=== PATIENT | female | born 1935 | race Caucasian/White ===

== ENCOUNTER 2017-05-19 08:46 | Inpatient (IN) | payer MEDICARE ==
[~2017-05-19] VITALS: Ht 152.4 cm; Wt 47.4 kg
[~2017-05-19 08:46] MED LIST: AMBIEN10 M1 PO; ASPIRIN81 M1; ATIVAN0.5 MG PO; CENTRUM SILVER1 TA1; LESCOL; LIPITOR20 MG PO; LOPRESSOR25 MG PO; LOPRESSOR50 MG; MULTI VITAMINS1 TAB PO; NORVASC2.5 MG PO; ONDANSETRON HYDR4 M1 PO; PRILOSEC OTC20 MG; PROTONIX40 MG PO; PROZAC20 MG PO; ZOCOR20 MG PO
[2017-05-19 08:59] VITALS: BP 139/41
[2017-05-19 09:32] LABS: BASO % 0.6 % (0.0-1.0); EOS # 0.1 10*3/uL (0.0-0.4); HEMATOCRIT 38.8 % (37.0-47.0); HEMOGLOBIN 12.9 g/dl (12.0-16.0); LYMPH # 0.9 10*3/uL (1.3-4.4); LYMPH % 13.1 % (27.0-41.0); MEAN CELL VOLUME 91.5 fl (81.0-99.0); MEAN CORPUSCULAR HGB 30.4 pg (27.0-31.0); MEAN CORPUSCULAR HGB CONC 33.2 g/dl (33.0-37.0); MEAN PLATELET VOLUME 8.5 fl (9.6-12.3); MONO # 0.6 10*3/uL (0.1-1.0); MONO % 8.3 % (3.0-9.0); NEUT # 5.2 10*3/uL (2.3-7.9); NEUT % 75.6 % (47.0-73.0); PLATELET COUNT AUTOMATED 285 10*3/uL (130-400); RED BLOOD COUNT 4.24 10*6/uL (4.10-5.10); RED CELL DISTRI WIDTH 12.9 % (0-14.5); WHITE BLOOD COUNT 6.9 10*3/uL (4.8-10.8)
[2017-05-19 09:41] LABS: ACT PARTIAL THROMBO TIME 22.6 SECONDS (20.8-31.5)
[2017-05-19 09:46] LABS: ALBUMIN 3.4 gm/dl (3.1-4.5); ALKALINE PHOSPHATASE 81 U/L (45-117); BUN 18 mg/dl (7-24); CHLORIDE 97 mmol/L (98-107); LIPASE 229 U/L (73-393); POTASSIUM 5.4 mmol/L (3.5-5.1); SGOT/AST 23 IU/L (3-35); SGPT/ALT 41 U/L (12-78); SODIUM 130 mmol/L (136-145); TOTAL PROTEIN 6.3 gm/dL (6.4-8.2)
[2017-05-19 09:50] VITALS: BP 144/53
[2017-05-19 09:50] LABS: TROPONIN I < 0.015 ng/ml (<0.045)
[2017-05-19 11:20] VITALS: BP 135/52
[2017-05-19] MEDS ORDERED: PLAVIX75 M1 PO (11:58)
[2017-05-19 12:00] VITALS: BP 137/78
[2017-05-19] MEDS ORDERED: BAYER ASPIRIN C81 MG PO (12:00)
[2017-05-19] MEDS ORDERED: CENTRUM SILVER1 EAC1 PO (12:01)
[2017-05-19] MEDS ORDERED: PHILLIPS' COLO1 EACH PO (12:02)
[2017-05-19 16:00] VITALS: BP 130/42
[2017-05-19 20:00] VITALS: BP 156/48
[2017-05-20] VITALS: BP 148/58
[2017-05-20 06:51] LABS: BASO % 0.4 % (0.0-1.0); EOS # 0.2 10*3/uL (0.0-0.4); EOS % 2.6 % (1.0-4.0); HEMATOCRIT 36.9 % (37.0-47.0); HEMOGLOBIN 12.4 g/dl (12.0-16.0); LYMPH # 1.4 10*3/uL (1.3-4.4); LYMPH % 17.5 % (27.0-41.0); MEAN CELL VOLUME 90.9 fl (81.0-99.0); MEAN CORPUSCULAR HGB 30.5 pg (27.0-31.0); MEAN CORPUSCULAR HGB CONC 33.6 g/dl (33.0-37.0); MEAN PLATELET VOLUME 8.7 fl (9.6-12.3); MONO # 1.1 10*3/uL (0.1-1.0); MONO % 13.7 % (3.0-9.0); NEUT # 5.2 10*3/uL (2.3-7.9); NEUT % 65.5 % (47.0-73.0); PLATELET COUNT AUTOMATED 237 10*3/uL (130-400); RED BLOOD COUNT 4.06 10*6/uL (4.10-5.10); RED CELL DISTRI WIDTH 12.8 % (0-14.5); WHITE BLOOD COUNT 7.9 10*3/uL (4.8-10.8)
[2017-05-20 07:18] LABS: ALBUMIN 3.1 gm/dl (3.1-4.5); ALKALINE PHOSPHATASE 78 U/L (45-117); BUN 12 mg/dl (7-24); CHLORIDE 97 mmol/L (98-107); CHOLESTEROL 144 mg/dL (<200); CREATININE 0.66 mg/dL (0.55-1.02); FREE T4 0.99 ng/dl (0.76-1.46); HDL CHOLESTEROL 66 mg/dl (40-60); LDL CHOLESTEROL 63 mg/dL (9-159); PHOSPHOROUS 3.6 mg/dL (2.5-4.9); SGOT/AST 17 IU/L (3-35); SGPT/ALT 33 U/L (12-78); SODIUM 133 mmol/L (136-145); TOTAL PROTEIN 6.1 gm/dL (6.4-8.2); TRIGLYCERIDES 74 mg/dl (<150); VLDL CHOLESTEROL 15 mg/dL (6-40)
[2017-05-20 07:24] LABS: POTASSIUM 4.1 mmol/L (3.5-5.1)
[2017-05-20 07:25] LABS: ACT PARTIAL THROMBO TIME 22.8 SECONDS (20.8-31.5)
[2017-05-20 08:00] VITALS: BP 122/50
[2017-05-20 08:17] LABS: VITAMIN D, 25-HYDROXY 19.6 ng/mL (30-100)
[2017-05-20 12:00] VITALS: BP 124/59
[2017-05-20 16:00] VITALS: BP 117/40
[2017-05-20] MEDS ORDERED: ULTRAM50 MG PO (16:16)
== END 2017-05-20 16:58 | disposition home health service (06) | DRG 563 ==
LOC: ED 08:46 → EDHOLD 10:24 → 4E 10:24
PROVIDERS: Emergency Medicine; Internal Medicine
DX: S42.292A Other displaced fracture of upper end of left humerus, initial encounter for closed fracture (principal); E87.8 Other disorders of electrolyte and fluid balance, not elsewhere classified; E44.1 Mild protein-calorie malnutrition; E87.5 Hyperkalemia; E87.1 Hypo-osmolality and hyponatremia; E83.41 Hypermagnesemia; D72.810 Lymphocytopenia; I25.10 Atherosclerotic heart disease of native coronary artery without angina pectoris; I10 Essential (primary) hypertension; E78.5 Hyperlipidemia, unspecified; F41.9 Anxiety disorder, unspecified; I05.1 Rheumatic mitral insufficiency; W00.0XXA Fall on same level due to ice and snow, initial encounter; I35.0 Nonrheumatic aortic (valve) stenosis; R73.9 Hyperglycemia, unspecified; Z68.20 Body mass index [BMI] 20.0-20.9, adult; Z95.5 Presence of coronary angioplasty implant and graft; Y93.89 Activity, other specified; Y92.89 Other specified places as the place of occurrence of the external cause; Y99.8 Other external cause status; Z88.8 Allergy status to other drugs, medicaments and biological substances; Z79.82 Long term (current) use of aspirin; Z79.899 Other long term (current) drug therapy; Z86.73 Personal history of transient ischemic attack (TIA), and cerebral infarction without residual deficits; I25.2 Old myocardial infarction; Z90.49 Acquired absence of other specified parts of digestive tract; Z98.51 Tubal ligation status; Z84.1 Family history of disorders of kidney and ureter; Z82.3 Family history of stroke; Z82.49 Family history of ischemic heart disease and other diseases of the circulatory system; Z66 Do not resuscitate; Z51.5 Encounter for palliative care

== ENCOUNTER → 2017-05-23 | Outpatient (CLI) | payer MEDICARE ==
[~2017-05-23] MED LIST changes: +BAYER ASPIRIN C81 MG PO; +CENTRUM SILVER1 EAC1 PO; +PHILLIPS' COLO1 EACH PO; +PLAVIX75 M1 PO; +ULTRAM50 MG PO
== END | disposition home or self-care (01) ==
LOC: ORTHO 02:16
DX: S42.212D Unspecified displaced fracture of surgical neck of left humerus, subsequent encounter for fracture with routine healing (principal); Z91.81 History of falling; X58.XXXD Exposure to other specified factors, subsequent encounter

== ENCOUNTER → 2017-06-13 | Outpatient (CLI) | payer MEDICARE | END | disposition home or self-care (01) | LOC: ORTHO 00:21 | DX: S00-T88 Injury, poisoning and certain other consequences of external causes (principal); S42.92XD Fracture of left shoulder girdle, part unspecified, subsequent encounter for fracture with routine healing; X58.XXXD Exposure to other specified factors, subsequent encounter ==

== ENCOUNTER → 2017-07-12 | Outpatient (CLI) | payer MEDICARE | END | disposition home or self-care (01) | LOC: ORTHO 03:33 | DX: S42.292D Other displaced fracture of upper end of left humerus, subsequent encounter for fracture with routine healing (principal); X58.XXXD Exposure to other specified factors, subsequent encounter ==

== ENCOUNTER → 2017-08-07 | Outpatient (CLI) | payer MEDICARE | END | disposition home or self-care (01) | LOC: LAB 08:47 | DX: E55.9 Vitamin D deficiency, unspecified (principal) ==

== ENCOUNTER → 2017-08-09 | Outpatient (CLI) | payer MEDICARE | END | disposition home or self-care (01) | LOC: ORTHO 01:56 | DX: S42.202A Unspecified fracture of upper end of left humerus, initial encounter for closed fracture (principal); X58.XXXA Exposure to other specified factors, initial encounter; Y93.89 Activity, other specified; Y92.89 Other specified places as the place of occurrence of the external cause; Y99.8 Other external cause status ==

== ENCOUNTER → 2017-09-13 | Outpatient (CLI) | payer MEDICARE | END | disposition home or self-care (01) | LOC: ORTHO 01:34 | DX: Z47.89 Encounter for other orthopedic aftercare (principal); S42.302D Unspecified fracture of shaft of humerus, left arm, subsequent encounter for fracture with routine healing; X58.XXXD Exposure to other specified factors, subsequent encounter ==

== ENCOUNTER → 2017-10-25 | Outpatient (CLI) | payer MEDICARE | END | disposition home or self-care (01) | LOC: ORTHO 02:21 | DX: Z47.89 Encounter for other orthopedic aftercare (principal); S42.202D Unspecified fracture of upper end of left humerus, subsequent encounter for fracture with routine healing; X58.XXXD Exposure to other specified factors, subsequent encounter ==

== ENCOUNTER 2017-12-26 08:45 | Inpatient (IN) | payer MEDICARE ==
[~2017-12-26] VITALS: Ht 152.4 cm; Wt 83.4 kg
--- NOTE | ~2017-12-26 | CON ---
[place], [place] REPORT OF CONSULTATION NAME: [id number] UNIT #: [id number] ROOM: 408 DOCTOR: NOMI CEJA MD BIRTHDATE: [birth year] DOS: 12/28/2017 CARDIOLOGY CONSULTATION REASON FOR CONSULTATION: Aortic stenosis and valvular heart disease. HISTORY OF PRESENT ILLNESS: The patient is an 82-year-old patient with a history of hypertension and coronary artery disease, was admitted for weakness and dizziness. She was started on her blood pressure medication, lisinopril with hydrochlorothiazide about a week ago. She also takes metoprolol for her blood pressure and coronary artery disease. Ever since she started on new blood pressure medication, she is feeling some lightheaded. Yesterday afternoon after taking the medication, she felt dizzy and "passed out." She woke up on the floor. There is no bladder or bowel incontinence. She denies any chest pain, palpitations or shortness of breath prior to this episode. She is also complaining of some exertional dyspnea for the past several months. The patient did walk several miles every day without any chest pain. Cardiology was consulted for further recommendation due to her valvular heart disease noted on a 2D echo done during this hospital admission. She denies any chest pain or palpitations. No dizziness. No PND, no orthopnea. No nausea, vomiting, or diarrhea. No fever or chills. No tingling, numbness or weakness. No headaches, no bladder or bowel symptoms. REVIEW OF SYSTEMS: Review of the 10 systems negative except as mentioned above. PAST MEDICAL HISTORY: 1. Coronary artery disease, status post stent about 20 years ago, details unknown. 2. Hypertension. 3. History of cerebrovascular accident. 4. Valvular heart disease. 5. Dyslipidemia. PAST SURGICAL HISTORY: History of cholecystectomy and tubal ligation. SOCIAL HISTORY: The patient does not smoke or drink, does not use illicit drugs. FAMILY HISTORY: Nil contributory. Father at age of 36 from kidney disease. Mother at the age of 78 from stroke. ALLERGIES: The patient is allergic to Valium and Ritalin. MEDICATIONS: Reviewed including aspirin, Lipitor, metoprolol, Ativan, Plavix, vitamin D3, and multivitamins. PHYSICAL EXAMINATION: VITAL SIGNS: Blood pressure 131/48, pulse 59, respiration 20, weight 51.5 kilos, BMI 22.2. GENERAL: Alert, comfortable, in no acute distress. [place], [place] REPORT OF CONSULTATION NAME: AYESHA YOU UNIT #: [id number] ROOM: [facility] DOCTOR: BRENNA ALACRON,NOMI BIRTHDATE: [birth year] HEENT: Pupils are round and equal. No jaundice. Tongue was moist and pharynx clear. NECK: Supple, no distended neck veins, no carotid bruit. CHEST: Symmetrical, nontender. LUNGS: Clear to auscultation. HEART: Regular rhythm, no S3. Grade 3/6 systolic murmur as well as grade 1/6 mid diastolic murmur. No palpable thrills. ABDOMEN: Benign and nontender. Bowel sounds normal. EXTREMITIES: Showed no edema. Distal pulses are palpable. SKIN: Warm and dry. No cyanosis, no clubbing. RECTAL: Deferred. GENITOURINARY: Deferred. NEUROLOGIC: The patient is alert and oriented. No focal neurologic deficit. REVIEW OF THE DIAGNOSTIC TESTS: Her labs, imaging studies, rhythm strips and EKGs reviewed as available. The pertinent labs include hemoglobin 14.6, WBC 12,000, and platelets 248,000. Creatinine 0.9, potassium 4.2. 2D echo from 12/27/2017 showed EF of 60% with moderate to severe aortic stenosis, mean gradient of 34 mmHg, peak 52 mmHg, valve area of 0.9 square cm. There is also mitral stenosis and moderate mitral regurgitation noted. There is severe tricuspid regurgitation and severe pulmonary hypertension noted. The stress test from 10/2015 was nonischemic. IMPRESSION: 1. Syncope, possibly due to hypotension. 2. Valvular heart disease with aortic stenosis, mitral stenosis, mitral regurgitation and tricuspid regurgitation. 3. Dyspnea on exertion. 4. Severe pulmonary hypertension. 5. Coronary artery disease, status post stent about 20 years ago per the patient, details not available. 6. Sinus bradycardia. 7. History of stroke. 8. Hypertension. 9. Hyponatremia. RECOMMENDATIONS: 1. Currently blood pressure and heart rates are stable. 2. Continue to hold her blood pressure medications and based on blood pressure and heart rates, resume low-dose beta blockers tomorrow. 3. I had a long discussion with the patient and her daughter, who is at bedside regarding her reason for syncope and valvular heart disease discussed. 4. The patient and her family does not wish her to undergo any cardiac surgery due to her age and high risk surgery. 5. If the patient is agreeable for valvular heart surgery, then she will need cardiac catheterization to rule out underlying coronary artery disease prior to her valvular heart surgery. 6. Precaution to avoid hypotension discussed. 7. Possible discharge home tomorrow with low-dose beta kacey based on her [place], [place] REPORT OF CONSULTATION NAME: AVELINOAYESHA Dietz UNIT #: [id number] ROOM: [facility] DOCTOR: NOMI CEJA MD BIRTHDATE: [birth year] blood pressures. NOMI CEJA MD CM:CONSTR:REPORT OF CONSULTATION 2357 12/29/17 0359 interface
--- NOTE | ~2017-12-26 | PR ---
[place], [place] PROGRESS NOTE NAME: AYESHA YOU UNIT #: [id number] ROOM: 408 DOCTOR: NOMI CEJA MD BIRTHDATE: [birth year] DOS: 12/29/2017 REASON FOR VISIT: Valvular heart disease, syncope. HISTORY OF PRESENT ILLNESS: The patient is feeling better. Denies any dizziness. No chest pain, no palpitations, no edema, no orthopnea, no PND. The patient has been ambulating without any discomfort except mild dyspnea on occasion. RHYTHM STRIPS: The patient was off the monitor. REVIEW OF SYSTEMS: Review of the 8 systems negative except as mentioned above. PHYSICAL EXAMINATION: VITAL SIGNS: Blood pressure 146/52, pulse 60, respiratory rate 16. GENERAL: Alert, comfortable, in no acute distress. HEAD AND NECK: Pupils are round and equal. No jaundice. Neck: Supple, nondistended. No carotid bruit. CHEST: Symmetrical, nontender. LUNGS: Clear to auscultation. HEART: Regular rhythm, no S3. Grade 2-3/6 systolic murmur as well as grade 2/6 mid diastolic murmur. No palpable thrills. ABDOMEN: Benign, nontender. Bowel sounds normal. EXTREMITIES: Showed no edema. Distal pulses palpable. SKIN: Warm and dry. No cyanosis, no clubbing. RECTAL: Deferred. GENITOURINARY: Deferred. NEUROLOGIC: The patient is alert, oriented. No focal neurologic deficit. MEDICATIONS AND ALLERGIES: Reviewed. DIAGNOSTIC TESTS: Labs reviewed as available. IMPRESSION: 1. Syncope, possibly due to hypotension. 2. Valvular heart disease with aortic stenosis and mitral stenosis. 3. Severe pulmonary hypertension. 4. Exertional dyspnea due to valvular heart disease. 5. History of essential hypertension. RECOMMENDATIONS: The patient is feeling better. No further syncope. Her blood pressure is stable with systolic blood pressure between 121-148 with a diastolic pressure of less than 90mmHg. Continue her low-dose beta blockers and monitor heart rate and blood pressure. The patient can be discharged home today and she would like to follow up with [facility]. [place], [place] PROGRESS NOTE NAME: AYESHA YOU UNIT #: [id number] ROOM: 408 DOCTOR: RYAN CEJA MDI BIRTHDATE: [birth year] Regarding blood pressures, we will adjust blood pressure medications. The patient again is requesting for medical therapy only for her valvular heart disease. Discussed with her sister, who is at bedside. The patient understood that she will get exertional dyspnea from her underlying valvular heart disease. Follow up with [facility] in about 2-3 weeks after her discharge. NOMI CEJA MD CM:TAVO [id number] NOMI CEJA MD 01/20/18 1040 interface
[2017-12-26 08:46] VITALS: BP 120/56
[2017-12-26 09:43] LABS: BASO % 0.2 % (0.0-1.0); EOS # 0.1 10*3/uL (0.0-0.4); EOS % 0.4 % (1.0-4.0); HEMATOCRIT 41.6 % (37.0-47.0); HEMOGLOBIN 14.6 g/dl (12.0-16.0); LYMPH # 0.5 10*3/uL (1.3-4.4); LYMPH % 4.3 % (27.0-41.0); MEAN CORPUSCULAR HGB 30.2 pg (27.0-31.0); MEAN CORPUSCULAR HGB CONC 35.1 g/dl (33.0-37.0); MEAN PLATELET VOLUME 8.5 fl (9.6-12.3); MONO # 0.8 10*3/uL (0.1-1.0); MONO % 6.5 % (3.0-9.0); NEUT # 10.8 10*3/uL (2.3-7.9); NEUT % 88.2 % (47.0-73.0); PLATELET COUNT AUTOMATED 248 10*3/uL (130-400); RED BLOOD COUNT 4.84 10*6/uL (4.10-5.10); RED CELL DISTRI WIDTH 12.1 % (0-14.5); WHITE BLOOD COUNT 12.2 10*3/uL (4.8-10.8)
[2017-12-26 09:58] LABS: ALBUMIN 3.5 gm/dl (3.1-4.5); ALKALINE PHOSPHATASE 77 U/L (45-117); BUN 17 mg/dl (7-24); CHLORIDE 86 mmol/L (98-107); POTASSIUM 4.2 mmol/L (3.5-5.1); SGOT/AST 28 IU/L (3-35); SGPT/ALT 31 U/L (12-78); SODIUM 122 mmol/L (136-145); TOTAL PROTEIN 6.7 gm/dL (6.4-8.2)
[2017-12-26 10:02] LABS: BILIRUBIN NEGATIVE (NEGATIVE); BLOOD TRACE-LYSED (NEGATIVE); CLARITY SL CLOUDY (CLEAR); COLOR YELLOW (YELLOW); GLUCOSE NEGATIVE (NEGATIVE); KETONE NEGATIVE (NEGATIVE); LEUKO ESTERASE TRACE (NEGATIVE); NITRITE NEGATIVE (NEGATIVE); PH 7.5 (5.0-9.0); UROBILINOGEN 0.2 E.U./dl (0.2-1.0)
[2017-12-26 10:16] LABS: BACTERIA 2+
[2017-12-26 11:07] VITALS: BP 120/56
[2017-12-26 12:00] VITALS: BP 126/107
[2017-12-26 12:42] VITALS: BP 124/61
[2017-12-26] MEDS ORDERED: VITAMIN D-32000 UNIT PO (13:28)
[2017-12-26] MEDS ORDERED: THEREMS-M1 EACH PO (13:29)
[2017-12-26 16:00] VITALS: BP 114/57
[2017-12-26 20:00] VITALS: BP 119/72
[2017-12-27] VITALS: BP 121/51
[2017-12-27 06:32] LABS: BASO # 0.1 10*3/uL (0.0-0.1); BASO % 0.6 % (0.0-1.0); EOS # 0.3 10*3/uL (0.0-0.4); EOS % 3.5 % (1.0-4.0); HEMATOCRIT 38.8 % (37.0-47.0); HEMOGLOBIN 13.2 g/dl (12.0-16.0); LYMPH # 1.1 10*3/uL (1.3-4.4); LYMPH % 10.9 % (27.0-41.0); MEAN CELL VOLUME 88.8 fl (81.0-99.0); MEAN CORPUSCULAR HGB 30.2 pg (27.0-31.0); MEAN PLATELET VOLUME 8.7 fl (9.6-12.3); MONO # 0.8 10*3/uL (0.1-1.0); MONO % 7.8 % (3.0-9.0); NEUT # 7.5 10*3/uL (2.3-7.9); NEUT % 76.8 % (47.0-73.0); PLATELET COUNT AUTOMATED 201 10*3/uL (130-400); RED BLOOD COUNT 4.37 10*6/uL (4.10-5.10); RED CELL DISTRI WIDTH 12.5 % (0-14.5); WHITE BLOOD COUNT 9.8 10*3/uL (4.8-10.8)
[2017-12-27 06:39] LABS: BUN 11 mg/dl (7-24); CHLORIDE 96 mmol/L (98-107); CREATININE 0.59 mg/dL (0.55-1.02); PHOSPHOROUS 2.1 mg/dL (2.5-4.9); POTASSIUM 3.8 mmol/L (3.5-5.1); SODIUM 128 mmol/L (136-145)
[2017-12-27 08:00] VITALS: BP 106/50
[2017-12-27 12:00] VITALS: BP 121/50
[2017-12-27] MEDS ORDERED: ZESTORETIC 10-1 EACH PO (14:21)
[2017-12-27 16:00] VITALS: BP 144/50
[2017-12-27 20:00] VITALS: BP 129/60
[2017-12-28 00:06] VITALS: BP 127/57
[2017-12-28 06:46] LABS: HEMATOCRIT 33.1 % (37.0-47.0); HEMOGLOBIN 11.2 g/dl (12.0-16.0); MEAN CELL VOLUME 89.9 fl (81.0-99.0); MEAN CORPUSCULAR HGB 30.4 pg (27.0-31.0); MEAN CORPUSCULAR HGB CONC 33.8 g/dl (33.0-37.0); MEAN PLATELET VOLUME 9.3 fl (9.6-12.3); PLATELET COUNT AUTOMATED 190 10*3/uL (130-400); RED BLOOD COUNT 3.68 10*6/uL (4.10-5.10); RED CELL DISTRI WIDTH 13.1 % (0-14.5); WHITE BLOOD COUNT 8.1 10*3/uL (4.8-10.8)
[2017-12-28 07:00] LABS: ALBUMIN 2.5 gm/dl (3.1-4.5); ALKALINE PHOSPHATASE 63 U/L (45-117); BUN 10 mg/dl (7-24); CHLORIDE 101 mmol/L (98-107); CREATININE 0.51 mg/dL (0.55-1.02); POTASSIUM 3.8 mmol/L (3.5-5.1); SGOT/AST 24 IU/L (3-35); SGPT/ALT 21 U/L (12-78); SODIUM 131 mmol/L (136-145); TOTAL PROTEIN 5.3 gm/dL (6.4-8.2)
[2017-12-28 07:16] LABS: BASOPHILS 1 % (0-1); PLATELET SUFFICIENCY NORMAL (NORMAL); TOTAL CELLS COUNTED 100 #CELLS
[2017-12-28 07:30] VITALS: BP 123/41
[2017-12-28 08:00] VITALS: BP 135/67
[2017-12-28 11:56] LABS: PHOSPHOROUS 2.1 mg/dL (2.5-4.9)
[2017-12-28 12:00] VITALS: BP 131/48
[2017-12-28 16:00] VITALS: BP 135/54
[2017-12-28 20:00] VITALS: BP 121/48
[2017-12-29] VITALS: BP 142/50
[2017-12-29 06:27] LABS: PHOSPHOROUS 2.9 mg/dL (2.5-4.9)
[2017-12-29 08:00] VITALS: BP 148/52
[2017-12-29 12:00] VITALS: BP 105/82
== END 2017-12-29 14:51 | disposition home or self-care (01) | DRG 312 ==
LOC: ED 08:45 → EDHOLD 12:20 → 4E 12:20
PROVIDERS: Emergency Medicine; Family Medicine; Internal Medicine; Student in an Organized Health Care Education/Training Program
DX: I95.2 Hypotension due to drugs (principal); E87.1 Hypo-osmolality and hyponatremia; T46.4X5A Adverse effect of angiotensin-converting-enzyme inhibitors, initial encounter; R00.1 Bradycardia, unspecified; I08.3 Combined rheumatic disorders of mitral, aortic and tricuspid valves; I27.20 Pulmonary hypertension, unspecified; F41.9 Anxiety disorder, unspecified; I25.10 Atherosclerotic heart disease of native coronary artery without angina pectoris; E78.5 Hyperlipidemia, unspecified; I10 Essential (primary) hypertension; R26.2 Difficulty in walking, not elsewhere classified; D72.829 Elevated white blood cell count, unspecified; R73.9 Hyperglycemia, unspecified; E87.8 Other disorders of electrolyte and fluid balance, not elsewhere classified; E80.6 Other disorders of bilirubin metabolism; R82.71 Bacteriuria; T50.2X5A Adverse effect of carbonic-anhydrase inhibitors, benzothiadiazides and other diuretics, initial encounter; Z88.8 Allergy status to other drugs, medicaments and biological substances; Z79.899 Other long term (current) drug therapy; Z79.82 Long term (current) use of aspirin; Z86.73 Personal history of transient ischemic attack (TIA), and cerebral infarction without residual deficits; I25.2 Old myocardial infarction; Z87.01 Personal history of pneumonia (recurrent); Z91.81 History of falling; Z90.49 Acquired absence of other specified parts of digestive tract; Z98.51 Tubal ligation status; Z95.5 Presence of coronary angioplasty implant and graft; Z82.49 Family history of ischemic heart disease and other diseases of the circulatory system; Z82.3 Family history of stroke; Z83.6 Family history of other diseases of the respiratory system; Z84.1 Family history of disorders of kidney and ureter; Y92.89 Other specified places as the place of occurrence of the external cause

== ENCOUNTER 2019-10-02 19:39 | Inpatient (IN) | payer MEDICARE ==
[~2019-10-02] VITALS: Ht 152.4 cm; Wt 53.5 kg
[~2019-10-02 19:39] MED LIST changes: +CARTIA XT120 MG PO; +KLOR-CON M1010 ME1 PO; +LASIX20 MG PO; +THEREMS-M1 EACH PO; +VITAMIN D-32000 UNIT PO; +VITAMIN D3125 MC1 PO; +ZESTORETIC 10-1 EACH PO
[2019-10-02 19:52] VITALS: BP 128/64
[2019-10-02 20:00] LABS: BASO # 0.1 10*3/uL (0.0-0.1); BASO % 0.8 % (0.0-1.0); EOS # 0.3 10*3/uL (0.0-0.4); EOS % 3.8 % (1.0-4.0); HEMATOCRIT 41.2 % (37.0-47.0); LYMPH # 1.6 10*3/uL (1.3-4.4); LYMPH % 21.1 % (27.0-41.0); MEAN CELL VOLUME 93.8 fl (81.0-99.0); MEAN CORPUSCULAR HGB 31.2 pg (27.0-31.0); MEAN CORPUSCULAR HGB CONC 33.3 g/dl (33.0-37.0); MEAN PLATELET VOLUME 8.7 fl (9.6-12.3); MONO # 0.7 10*3/uL (0.1-1.0); MONO % 9.2 % (3.0-9.0); NEUT % 64.8 % (47.0-73.0); PLATELET COUNT AUTOMATED 250 10*3/uL (130-400); RED BLOOD COUNT 4.39 10*6/uL (4.10-5.10); WHITE BLOOD COUNT 7.7 10*3/uL (4.8-10.8)
[2019-10-02 20:09] LABS: ACT PARTIAL THROMBO TIME 25.3 SECONDS (20.0-32.1)
[2019-10-02 20:17] LABS: ALBUMIN 3.3 gm/dl (3.1-4.5); ALKALINE PHOSPHATASE 79 U/L (45-117); BUN 22 mg/dl (7-24); CHLORIDE 105 mmol/L (98-107); CREATININE 0.95 mg/dL (0.55-1.02); POTASSIUM 3.8 mmol/L (3.5-5.1); SGOT/AST 27 IU/L (3-35); SGPT/ALT 46 U/L (12-78); SODIUM 134 mmol/L (136-145); TOTAL PROTEIN 6.5 gm/dL (6.4-8.2)
[2019-10-02 20:22] LABS: TROPONIN I < 0.015 ng/ml (<0.045)
--- NOTE | 2019-10-03 02:45 | NUR ---
PT TRANSPORTED TO AT THIS TIME IN STABLE CONDITION.
--- NOTE | 2019-10-03 03:00 | NUR ---
A 84, admitted to 4E, under the services of HAYDE Salcido DO with a diagnosis of CHEST PAIN, NEW ONSET AFIB, HX. CAD. Chief complaint is SHORTNESS OF BREATH. Patient arrived via stretcher from ER. Monitor applied. Initial assessment completed. Vital signs taken and recorded. HAYDE SALCIDO DO notified of admission to the unit. Orders received. See assessment for past medical history, medications and allergies. Patient and/or family oriented to unit. visitation policy reviewed. Clothing/patient valuable form completed. RISHABH OMALLEY
[2019-10-03 03:02] VITALS: BP 102/58
[2019-10-03 07:06] LABS: ACT PARTIAL THROMBO TIME 25.9 SECONDS (20.0-32.1)
[2019-10-03 07:07] LABS: BASO % 0.6 % (0.0-1.0); EOS # 0.4 10*3/uL (0.0-0.4); EOS % 5.2 % (1.0-4.0); HEMATOCRIT 42.6 % (37.0-47.0); LYMPH # 1.4 10*3/uL (1.3-4.4); LYMPH % 19.4 % (27.0-41.0); MEAN CORPUSCULAR HGB 30.5 pg (27.0-31.0); MEAN CORPUSCULAR HGB CONC 32.4 g/dl (33.0-37.0); MEAN PLATELET VOLUME 9.1 fl (9.6-12.3); MONO # 0.8 10*3/uL (0.1-1.0); MONO % 10.6 % (3.0-9.0); NEUT # 4.6 10*3/uL (2.3-7.9); NEUT % 63.8 % (47.0-73.0); PLATELET COUNT AUTOMATED 250 10*3/uL (130-400); RED BLOOD COUNT 4.53 10*6/uL (4.10-5.10); RED CELL DISTRI WIDTH 14.3 % (0-14.5); WHITE BLOOD COUNT 7.2 10*3/uL (4.8-10.8)
[2019-10-03 07:41] LABS: CHLORIDE 106 mmol/L (98-107); SODIUM 138 mmol/L (136-145)
[2019-10-03 07:54] LABS: ALBUMIN 3.1 gm/dl (3.1-4.5); ALKALINE PHOSPHATASE 76 U/L (45-117); BUN 17 mg/dl (7-24); CHOLESTEROL 122 mg/dL (<200); CREATININE 0.82 mg/dL (0.55-1.02); FREE T4 1.23 ng/dl (0.76-1.46); HDL CHOLESTEROL 49 mg/dl (40-60); LDL CHOLESTEROL 57 mg/dL (9-159); SGOT/AST 23 IU/L (3-35); SGPT/ALT 40 U/L (12-78); TOTAL PROTEIN 6.3 gm/dL (6.4-8.2); TRIGLYCERIDES 78 mg/dl (<150); VLDL CHOLESTEROL 16 mg/dL (6-40)
[2019-10-03 07:55] LABS: VITAMIN D, 25-HYDROXY 91.1 ng/mL (30-100)
[2019-10-03 08:00] VITALS: BP 110/80
[2019-10-03 12:00] VITALS: BP 105/58
[2019-10-03 16:00] VITALS: BP 97/76
--- NOTE | 2019-10-03 19:50 | NUR ---
PATIENT IS AAOX3 RESTING IN BED WITH EASY AND REGULAR RESPERS ON ROOM AIR. ASSESSMENT IS COMPLETE WITH NO S/S OF DISTRESS NOTED AT THIS TIME. PATIENT C/O INABILITY TO FIND SOMETHING TO WATCH ON TV. ATTEMPTED TO HELP PATIENT FIND SOMETHING TO WATCH WITH NO SATISFACTION. OFFERED CROSSWORD AND/OR BOOK TO READ. PATIENT STATED "THAT IS FINE JUST TURN THE TV OFF." WATER PROVIDED. BED IS LOW, LOCKED, ALARMED, AND CALL LIGHT IS WITHIN REACH. SEE INTERVENTION SCREEN.
[2019-10-03 20:00] VITALS: BP 139/90
--- NOTE | 2019-10-03 21:50 | NUR ---
PRN ATIVAN GIVEN PER PATIENT REQUEST FOR ANXIETY. CALL LIGHT IS WITHIN REACH, WILL MONITOR EFFECT.
--- NOTE | 2019-10-03 22:50 | NUR ---
PRN ATIVAN EFFECTIVE PER PATIENT. CALL LIGHT IS WITHIN REACH.
[2019-10-04] VITALS: BP 117/77
[2019-10-04 06:12] LABS: BASO # 0.1 10*3/uL (0.0-0.1); BASO % 0.7 % (0.0-1.0); EOS # 0.4 10*3/uL (0.0-0.4); EOS % 5.1 % (1.0-4.0); HEMATOCRIT 43.5 % (37.0-47.0); LYMPH # 1.6 10*3/uL (1.3-4.4); LYMPH % 21.8 % (27.0-41.0); MEAN CORPUSCULAR HGB 30.2 pg (27.0-31.0); MEAN CORPUSCULAR HGB CONC 32.2 g/dl (33.0-37.0); MONO # 0.8 10*3/uL (0.1-1.0); NEUT # 4.7 10*3/uL (2.3-7.9); NEUT % 62.1 % (47.0-73.0); PLATELET COUNT AUTOMATED 248 10*3/uL (130-400); RED BLOOD COUNT 4.63 10*6/uL (4.10-5.10); RED CELL DISTRI WIDTH 14.6 % (0-14.5); WHITE BLOOD COUNT 7.5 10*3/uL (4.8-10.8)
[2019-10-04 06:39] LABS: BUN 19 mg/dl (7-24); CHLORIDE 105 mmol/L (98-107); CREATININE 0.97 mg/dL (0.55-1.02); POTASSIUM 4.3 mmol/L (3.5-5.1); SODIUM 136 mmol/L (136-145)
[2019-10-04 08:00] VITALS: BP 96/57
--- NOTE | 2019-10-04 09:06 | NUR ---
PT REQUESTED AND WAS MEDICATED WITH ATIVAN FOR C/O ANXIETY. CALL LIGHT IN REACH. WILL MONITOR
--- NOTE | 2019-10-04 10:00 | NUR ---
MEDICATION EFFECTIVE, PER PT. CALL LIGHT IN REACH. WILL MONITOR
[2019-10-04 12:00] VITALS: BP 100/75
--- NOTE | 2019-10-04 13:00 | NUR ---
PT AMBULATING IN HALLS. WILL MONITOR
--- NOTE | 2019-10-04 13:30 | NUR ---
DR PERALTA NOTIFIED OF PT CONCERN R/T XARELTO AND PREVIOUS BLEEDING IN EYE. SHE WAS TAKEN OFF PRIOR ANTICOUGULANTS. SHE STATES SHE WOULD LIKE TO SPEAK WITH HER TYPE COPY EXAMINER AND OPTIMLOGIST R/T TAKING NEW MED. HE STATES UNDERSTANDING.
[2019-10-04 16:00] VITALS: BP 116/79
[2019-10-04 20:00] VITALS: BP 120/80
--- NOTE | 2019-10-04 20:39 | NUR ---
PATIENT MEDICATED WITH TESSALON FOR COMPLAINTS OF A SORE THROAT FROM BREATHING TREATMENT. WILL MONITOR FOR EFFECTIVENESS. CALL LIGHT IN REACH.
--- NOTE | 2019-10-04 21:16 | NUR ---
PATIENT STATES TESSALON NOT VERY EFFECTIVE AT THIS TIME. PATIENT MEDICATED WITH ATIVAN FOR COMPLAINTS OF ANXIETY. WILL CONTINUE TO MONITOR. CALL LIGHT IN REACH.
[2019-10-05] VITALS: BP 104/68
--- NOTE | 2019-10-05 00:15 | NUR ---
ATIVAN EFFECTIVE. PATIENT IN BED WITH EYES CLOSED. NO SIGNS OR SYMPTOMS OF DISTRESS NOTED. CALL LIGHT IN REACH.
[2019-10-05 05:52] LABS: BASO # 0.1 10*3/uL (0.0-0.1); BASO % 0.8 % (0.0-1.0); EOS # 0.6 10*3/uL (0.0-0.4); EOS % 6.2 % (1.0-4.0); HEMATOCRIT 42.6 % (37.0-47.0); LYMPH # 1.4 10*3/uL (1.3-4.4); LYMPH % 15.8 % (27.0-41.0); MEAN CELL VOLUME 94.7 fl (81.0-99.0); MEAN CORPUSCULAR HGB 31.1 pg (27.0-31.0); MEAN CORPUSCULAR HGB CONC 32.9 g/dl (33.0-37.0); MONO # 0.8 10*3/uL (0.1-1.0); MONO % 9.4 % (3.0-9.0); NEUT # 6.1 10*3/uL (2.3-7.9); NEUT % 67.5 % (47.0-73.0); PLATELET COUNT AUTOMATED 252 10*3/uL (130-400); RED CELL DISTRI WIDTH 14.6 % (0-14.5)
[2019-10-05 05:54] LABS: BUN 23 mg/dl (7-24); CHLORIDE 104 mmol/L (98-107); CREATININE 0.99 mg/dL (0.55-1.02); POTASSIUM 4.2 mmol/L (3.5-5.1); SODIUM 135 mmol/L (136-145)
--- NOTE | 2019-10-05 07:00 | NUR ---
ARRIVED ON SHIFT, REPORT RECEIVED, ASSUMED CARE OF PATIENT.
--- NOTE | 2019-10-05 07:25 | NUR ---
INTRODUCED SELF TO PATIENT, BED IN LOW POSITION, WITH WHEELLOCKS ENGAGED, SIDERAILS UP X 2, FOR TURNING AND REPOSITION, CALL LIGHT WITHIN REACH, NO NEEDS VOICED AT THIS TIME, WHITEBOARD UPDATED.
[2019-10-05 08:00] VITALS: BP 106/53; BP 114/80
--- NOTE | 2019-10-05 08:00 | NUR ---
Shift chart check completed.
[2019-10-05 08:15] VITALS: BP 110/66
--- NOTE | 2019-10-05 09:13 | NUR ---
PATIENT C/O FEELING ANXIOUS, MEDICATED WITH LORAZEPAM PER PATIENTS REQUEST ORDERED.
--- NOTE | 2019-10-05 10:12 | NUR ---
PATIENT REPORTS SHE IS FEELING SLIGHTLY LESS ANXIOUS AFTER RECEIVING LORAZEPAM, ADVISED I HAD CALL OUT TO EYE DOCTOR TO VERIFY IF OK TO RERCEIVED XERALTO.
--- NOTE | 2019-10-05 10:30 | NUR ---
Finance Intern in to talk to patient. Patient states lives at home alone with her sister living 2 doors down. There are 0 steps in the home. Physician: Dr. Nishant Garcia Pharmacy: [facility] Home health services: none Patient's level of ADLs: INDEPENDENT Patient has working utilities: yes DME: cane, walker Follow-up physician's appointment after d/c: will be made by the hospitalist nurse director upon discharge Does patient want to access PORTAL?: no Discharge plan discussed with patient. She lives at home alone with her family checking in on her. She is independent in her ADLs and ambulation. She does have a cane and a walker at home but doesn't have to use. Discussed home health care services and she denies any home needs at this time. She states she is going to get her new medication, Xarelto, from the hospital pharmacy but she doesn't have $4 on her. When her sister comes to pick her up to go home she will have her sister pay for it. She states she has a cleaning lady that comes once a week. When medically stable she will be discharged to home. Her sister, Sujatha, will provide transportation on discharge. ROBERT PEACOCK
[2019-10-05 12:00] VITALS: BP 97/53
--- NOTE | 2019-10-05 12:59 | NUR ---
SPOKE WITH DERRELL FROM EYE CARE, ADVISED THAT WANTED TO ORDER XERALTO FOR PATIENT AND THAT PATIENT WAS CONCERNED DUE TO PAST BLEEDING BEHIND THE EYE, SHE WANTED HOSPITAL TO CHECK WITH EYE DOCTOR TO SAY IF OK.
[2019-10-05] MEDS ORDERED: METOPROLOL TART50 M1 PO (14:27)
[2019-10-05] MEDS ORDERED: XARE20MG PO (14:56)
--- NOTE | 2019-10-05 15:28 | NUR ---
Discharge instructions reviewed with patient/family. Patient receptive and verbalizes understanding. Follow-up care arranged. Written instructions given to patient/family, patient to pickling machine operator xeralto from hospital pharmacy. reviewed all discharge medications, reviewed she is to stop metoprolol 25mg BID and increase to 50mg BID as ordered. IV removed, telemetry unit removed and accounted for. left vis w/c with assist from SHERICE BANDAN, RN
== END 2019-10-05 15:45 | disposition home or self-care (01) | DRG 308 ==
LOC: ED 19:39 → EDHOLD 23:45 → 4E 23:45
PROVIDERS: Emergency Medicine Emergency Medical Services; Hospitalist; Internal Medicine; ADMIT Internal Medicine
DX: I48.91 Unspecified atrial fibrillation (principal); I50.33 Acute on chronic diastolic (congestive) heart failure; E87.1 Hypo-osmolality and hyponatremia; R73.9 Hyperglycemia, unspecified; E83.41 Hypermagnesemia; D72.810 Lymphocytopenia; I11.0 Hypertensive heart disease with heart failure; E78.2 Mixed hyperlipidemia; I27.20 Pulmonary hypertension, unspecified; R07.89 Other chest pain; I08.3 Combined rheumatic disorders of mitral, aortic and tricuspid valves; I25.118 Atherosclerotic heart disease of native coronary artery with other forms of angina pectoris; F41.9 Anxiety disorder, unspecified; Z86.73 Personal history of transient ischemic attack (TIA), and cerebral infarction without residual deficits; Z90.49 Acquired absence of other specified parts of digestive tract; Z82.3 Family history of stroke; Z98.51 Tubal ligation status; Z95.5 Presence of coronary angioplasty implant and graft; Z82.49 Family history of ischemic heart disease and other diseases of the circulatory system; Z82.5 Family history of asthma and other chronic lower respiratory diseases; Z84.1 Family history of disorders of kidney and ureter; I25.2 Old myocardial infarction; Z91.81 History of falling; Z88.8 Allergy status to other drugs, medicaments and biological substances; Z79.899 Other long term (current) drug therapy; Z79.02 Long term (current) use of antithrombotics/antiplatelets

== ENCOUNTER 2019-10-13 20:08 | Inpatient (IN) | payer MEDICARE ==
[~2019-10-13] VITALS: Ht 152.4 cm; Wt 57.2 kg
[~2019-10-13 20:08] MED LIST changes: +METOPROLOL TART50 M1 PO; +XARE20MG PO
[2019-10-13 20:12] VITALS: BP 134/66
[2019-10-13 20:51] LABS: BASO # 0.1 10*3/uL (0.0-0.1); BASO % 0.6 % (0.0-1.0); EOS # 0.3 10*3/uL (0.0-0.4); EOS % 4.1 % (1.0-4.0); LYMPH # 2.2 10*3/uL (1.3-4.4); LYMPH % 27.6 % (27.0-41.0); MEAN CELL VOLUME 93.2 fl (81.0-99.0); MEAN CORPUSCULAR HGB CONC 33.3 g/dl (33.0-37.0); MEAN PLATELET VOLUME 8.3 fl (9.6-12.3); MONO # 0.8 10*3/uL (0.1-1.0); NEUT # 4.6 10*3/uL (2.3-7.9); NEUT % 57.3 % (47.0-73.0); PLATELET COUNT AUTOMATED 237 10*3/uL (130-400); RED BLOOD COUNT 4.29 10*6/uL (4.10-5.10); RED CELL DISTRI WIDTH 14.6 % (0-14.5)
[2019-10-13 21:00] LABS: INTERNATIONAL NORM RATIO 1.7 (2.0-3.5)
[2019-10-13 21:09] LABS: ALBUMIN 3.2 gm/dl (3.1-4.5); ALKALINE PHOSPHATASE 82 U/L (45-117); BUN 19 mg/dl (7-24); CHLORIDE 101 mmol/L (98-107); CREATININE 0.93 mg/dL (0.55-1.02); POTASSIUM 3.5 mmol/L (3.5-5.1); SGOT/AST 33 IU/L (3-35); SGPT/ALT 51 U/L (12-78); SODIUM 132 mmol/L (136-145); TOTAL PROTEIN 6.4 gm/dL (6.4-8.2)
[2019-10-13 21:14] LABS: TROPONIN I < 0.015 ng/ml (<0.045)
[2019-10-13 21:40] LABS: BILIRUBIN NEGATIVE (NEGATIVE); BLOOD 1+ (NEGATIVE); CLARITY CLEAR (CLEAR); COLOR YELLOW (YELLOW); GLUCOSE NEGATIVE (NEGATIVE); KETONE NEGATIVE (NEGATIVE)
[2019-10-13 21:41] LABS: BACTERIA TRACE; LEUKO ESTERASE NEGATIVE (NEGATIVE); NITRITE NEGATIVE (NEGATIVE); RBC 0-2 rbc/hpf (0-2); UROBILINOGEN 0.2 E.U./dl (0.2-1.0); WBC 0-2 wbc/hpf (0-5)
[2019-10-14 00:28] VITALS: BP 132/61
[2019-10-14 00:40] VITALS: BP 149/76
[2019-10-14 06:38] LABS: BASO # 0.1 10*3/uL (0.0-0.1); BASO % 0.8 % (0.0-1.0); EOS # 0.4 10*3/uL (0.0-0.4); EOS % 5.5 % (1.0-4.0); HEMATOCRIT 39.8 % (37.0-47.0); LYMPH % 25.7 % (27.0-41.0); MEAN CELL VOLUME 94.3 fl (81.0-99.0); MEAN CORPUSCULAR HGB 30.6 pg (27.0-31.0); MEAN CORPUSCULAR HGB CONC 32.4 g/dl (33.0-37.0); MEAN PLATELET VOLUME 8.7 fl (9.6-12.3); MONO # 0.8 10*3/uL (0.1-1.0); MONO % 10.3 % (3.0-9.0); NEUT # 4.4 10*3/uL (2.3-7.9); NEUT % 57.2 % (47.0-73.0); PLATELET COUNT AUTOMATED 242 10*3/uL (130-400); RED BLOOD COUNT 4.22 10*6/uL (4.10-5.10); RED CELL DISTRI WIDTH 14.6 % (0-14.5); WHITE BLOOD COUNT 7.6 10*3/uL (4.8-10.8)
[2019-10-14 07:04] LABS: BUN 16 mg/dl (7-24); CHLORIDE 103 mmol/L (98-107); CREATININE 0.82 mg/dL (0.55-1.02); POTASSIUM 3.3 mmol/L (3.5-5.1); SODIUM 134 mmol/L (136-145)
[2019-10-14 08:00] VITALS: BP 138/90
[2019-10-14 12:00] VITALS: BP 111/59
[2019-10-14 16:00] VITALS: BP 105/63
[2019-10-14 20:00] VITALS: BP 122/68
[2019-10-15] VITALS: BP 120/63
[2019-10-15 06:28] LABS: BUN 22 mg/dl (7-24); CHLORIDE 102 mmol/L (98-107); CREATININE 0.98 mg/dL (0.55-1.02); POTASSIUM 3.6 mmol/L (3.5-5.1); SODIUM 136 mmol/L (136-145)
[2019-10-15 08:00] VITALS: BP 122/63
[2019-10-15] MEDS ORDERED: LASIX20 MG PO (10:40)
[2019-10-15] MEDS ORDERED: ALDACTONE25 MG PO (10:40)
[2019-10-15 12:00] VITALS: BP 119/68
== END 2019-10-15 13:00 | disposition home health service (06) | DRG 292 ==
LOC: ED 20:08 → EDHOLD 23:18 → 4E 23:18
PROVIDERS: Emergency Medicine; Student in an Organized Health Care Education/Training Program; ADMIT Internal Medicine
DX: I11.0 Hypertensive heart disease with heart failure (principal); E87.1 Hypo-osmolality and hyponatremia; I48.20 Chronic atrial fibrillation, unspecified; I50.33 Acute on chronic diastolic (congestive) heart failure; R73.9 Hyperglycemia, unspecified; E83.41 Hypermagnesemia; F41.9 Anxiety disorder, unspecified; I25.10 Atherosclerotic heart disease of native coronary artery without angina pectoris; I35.0 Nonrheumatic aortic (valve) stenosis; I05.1 Rheumatic mitral insufficiency; E87.6 Hypokalemia; Z86.73 Personal history of transient ischemic attack (TIA), and cerebral infarction without residual deficits; Z82.3 Family history of stroke; Z84.1 Family history of disorders of kidney and ureter; Z79.899 Other long term (current) drug therapy; I25.2 Old myocardial infarction; Z90.49 Acquired absence of other specified parts of digestive tract; Z95.5 Presence of coronary angioplasty implant and graft; Z98.51 Tubal ligation status; Z79.82 Long term (current) use of aspirin

== ENCOUNTER → 2019-10-19 | Outpatient (CLI) | payer MEDICARE ==
[~2019-10-19] MED LIST changes: +ALDACTONE25 MG PO
[2019-10-19 09:38] LABS: CREATININE 1.18 mg/dL (0.55-1.02); POTASSIUM 3.4 mmol/L (3.5-5.1)
== END | disposition home or self-care (01) ==
LOC: LAB 08:29
PROVIDERS: Student in an Organized Health Care Education/Training Program
DX: I50.9 Heart failure, unspecified (principal); E87.6 Hypokalemia

== ENCOUNTER 2019-10-27 16:58 | Inpatient (IN) | payer MEDICARE ==
[~2019-10-27] VITALS: Ht 152.4 cm; Wt 51.9 kg
[2019-10-27 16:59] VITALS: BP 118/76
[2019-10-27 17:36] LABS: BASO # 0.1 10*3/uL (0.0-0.1); BASO % 0.7 % (0.0-1.0); EOS # 0.3 10*3/uL (0.0-0.4); EOS % 3.2 % (1.0-4.0); HEMATOCRIT 40.7 % (37.0-47.0); LYMPH % 23.3 % (27.0-41.0); MEAN CELL VOLUME 91.7 fl (81.0-99.0); MEAN CORPUSCULAR HGB 29.5 pg (27.0-31.0); MEAN CORPUSCULAR HGB CONC 32.2 g/dl (33.0-37.0); MEAN PLATELET VOLUME 8.7 fl (9.6-12.3); MONO # 0.9 10*3/uL (0.1-1.0); MONO % 10.6 % (3.0-9.0); NEUT # 5.2 10*3/uL (2.3-7.9); PLATELET COUNT AUTOMATED 306 10*3/uL (130-400); RED BLOOD COUNT 4.44 10*6/uL (4.10-5.10); RED CELL DISTRI WIDTH 13.8 % (0-14.5); WHITE BLOOD COUNT 8.5 10*3/uL (4.8-10.8)
[2019-10-27 17:47] LABS: ACT PARTIAL THROMBO TIME 35.3 SECONDS (20.0-32.1); INTERNATIONAL NORM RATIO 1.5 (2.0-3.5)
[2019-10-27 17:50] LABS: ALBUMIN 3.6 gm/dl (3.1-4.5); ALKALINE PHOSPHATASE 87 U/L (45-117); BUN 43 mg/dl (7-24); CHLORIDE 97 mmol/L (98-107); CREATININE 1.42 mg/dL (0.55-1.02); LIPASE 1088 U/L (73-393); POTASSIUM 3.9 mmol/L (3.5-5.1); SGOT/AST 30 IU/L (3-35); SGPT/ALT 39 U/L (12-78); SODIUM 133 mmol/L (136-145); TOTAL PROTEIN 7.1 gm/dL (6.4-8.2)
[2019-10-27 18:06] LABS: BILIRUBIN NEGATIVE (NEGATIVE); BLOOD TRACE-INTACT (NEGATIVE); CLARITY CLEAR (CLEAR); COLOR YELLOW (YELLOW); GLUCOSE NEGATIVE (NEGATIVE); KETONE NEGATIVE (NEGATIVE); PH 7.5 (5.0-9.0); SPECIFIC GRAVITY 1.005 (1.005-1.030)
[2019-10-27 18:07] LABS: LEUKO ESTERASE NEGATIVE (NEGATIVE); NITRITE NEGATIVE (NEGATIVE); RBC 0-2 rbc/hpf (0-2); UROBILINOGEN 0.2 E.U./dl (0.2-1.0)
[2019-10-27 18:18] VITALS: BP 120/78
[2019-10-27 18:34] VITALS: BP 122/70
[2019-10-27 20:00] VITALS: BP 117/50
[2019-10-28] VITALS: BP 103/56
[2019-10-28 06:33] LABS: BASO # 0.1 10*3/uL (0.0-0.1); BASO % 0.6 % (0.0-1.0); EOS # 0.4 10*3/uL (0.0-0.4); EOS % 4.9 % (1.0-4.0); HEMATOCRIT 37.9 % (37.0-47.0); LYMPH # 1.9 10*3/uL (1.3-4.4); LYMPH % 23.6 % (27.0-41.0); MEAN CELL VOLUME 92.2 fl (81.0-99.0); MEAN CORPUSCULAR HGB 30.2 pg (27.0-31.0); MEAN CORPUSCULAR HGB CONC 32.7 g/dl (33.0-37.0); MEAN PLATELET VOLUME 8.6 fl (9.6-12.3); MONO # 0.9 10*3/uL (0.1-1.0); NEUT # 4.7 10*3/uL (2.3-7.9); NEUT % 59.5 % (47.0-73.0); PLATELET COUNT AUTOMATED 269 10*3/uL (130-400); RED BLOOD COUNT 4.11 10*6/uL (4.10-5.10); RED CELL DISTRI WIDTH 14.2 % (0-14.5); WHITE BLOOD COUNT 7.9 10*3/uL (4.8-10.8)
[2019-10-28 06:43] LABS: INTERNATIONAL NORM RATIO 1.3 (2.0-3.5)
[2019-10-28 07:02] LABS: ALBUMIN 3.3 gm/dl (3.1-4.5); ALKALINE PHOSPHATASE 76 U/L (45-117); BUN 36 mg/dl (7-24); CHLORIDE 103 mmol/L (98-107); CREATININE 1.05 mg/dL (0.55-1.02); SGOT/AST 25 IU/L (3-35); SGPT/ALT 34 U/L (12-78); SODIUM 137 mmol/L (136-145); TOTAL PROTEIN 6.3 gm/dL (6.4-8.2)
[2019-10-28 08:00] VITALS: BP 90/62
[2019-10-28 12:00] VITALS: BP 96/57
[2019-10-28 16:00] VITALS: BP 90/56
[2019-10-28 20:00] VITALS: BP 126/80
[2019-10-29] VITALS: BP 107/57
[2019-10-29 05:39] LABS: CHLORIDE 104 mmol/L (98-107); SODIUM 137 mmol/L (136-145)
[2019-10-29 05:46] LABS: BUN 23 mg/dl (7-24)
[2019-10-29 06:11] LABS: BASO # 0.1 10*3/uL (0.0-0.1); BASO % 0.8 % (0.0-1.0); EOS # 0.3 10*3/uL (0.0-0.4); EOS % 4.1 % (1.0-4.0); HEMATOCRIT 37.9 % (37.0-47.0); LYMPH # 1.8 10*3/uL (1.3-4.4); LYMPH % 24.9 % (27.0-41.0); MEAN CELL VOLUME 93.3 fl (81.0-99.0); MEAN CORPUSCULAR HGB 29.8 pg (27.0-31.0); MEAN CORPUSCULAR HGB CONC 31.9 g/dl (33.0-37.0); MONO # 0.9 10*3/uL (0.1-1.0); NEUT # 4.3 10*3/uL (2.3-7.9); NEUT % 58.1 % (47.0-73.0); PLATELET COUNT AUTOMATED 285 10*3/uL (130-400); RED BLOOD COUNT 4.06 10*6/uL (4.10-5.10); RED CELL DISTRI WIDTH 14.3 % (0-14.5); WHITE BLOOD COUNT 7.4 10*3/uL (4.8-10.8)
[2019-10-29 08:00] VITALS: BP 96/56
[2019-10-29] MEDS ORDERED: XARE20MG PO ×2 (11:32→11:35)
[2019-10-29 12:00] VITALS: BP 108/56
== END 2019-10-29 12:49 | disposition home health service (06) | DRG 377 ==
LOC: ED 16:58 → EDHOLD 18:10 → 4E 18:10 → EDHOLD 18:25 → 4E 18:37
PROVIDERS: Internal Medicine; Nurse Practitioner Family; Student in an Organized Health Care Education/Training Program; ADMIT Internal Medicine
DX: K62.5 Hemorrhage of anus and rectum (principal); N17.0 Acute kidney failure with tubular necrosis; E87.1 Hypo-osmolality and hyponatremia; I48.20 Chronic atrial fibrillation, unspecified; I50.32 Chronic diastolic (congestive) heart failure; I25.10 Atherosclerotic heart disease of native coronary artery without angina pectoris; I08.0 Rheumatic disorders of both mitral and aortic valves; E87.8 Other disorders of electrolyte and fluid balance, not elsewhere classified; R73.9 Hyperglycemia, unspecified; E78.5 Hyperlipidemia, unspecified; F41.9 Anxiety disorder, unspecified; I11.0 Hypertensive heart disease with heart failure; E86.0 Dehydration; Z66 Do not resuscitate; Z51.5 Encounter for palliative care; T45.515A Adverse effect of anticoagulants, initial encounter; Y92.89 Other specified places as the place of occurrence of the external cause; Z82.3 Family history of stroke; Z84.1 Family history of disorders of kidney and ureter; Z79.899 Other long term (current) drug therapy; Z79.01 Long term (current) use of anticoagulants; Z86.73 Personal history of transient ischemic attack (TIA), and cerebral infarction without residual deficits; Z90.49 Acquired absence of other specified parts of digestive tract; Z95.5 Presence of coronary angioplasty implant and graft; Z98.51 Tubal ligation status; Z79.82 Long term (current) use of aspirin; Z88.8 Allergy status to other drugs, medicaments and biological substances

== ENCOUNTER 2019-11-14 08:35 | Observation (INO) | payer MEDICARE ==
[~2019-11-14] VITALS: Ht 152.4 cm; Wt 50.3 kg
[2019-11-14 08:37] VITALS: BP 122/68
[2019-11-14 09:33] LABS: BASO # 0.1 10*3/uL (0.0-0.1); BASO % 0.5 % (0.0-1.0); EOS # 0.3 10*3/uL (0.0-0.4); EOS % 2.3 % (1.0-4.0); HEMATOCRIT 36.7 % (37.0-47.0); LYMPH # 1.4 10*3/uL (1.3-4.4); LYMPH % 12.2 % (27.0-41.0); MEAN CORPUSCULAR HGB 28.9 pg (27.0-31.0); MEAN CORPUSCULAR HGB CONC 32.2 g/dl (33.0-37.0); MEAN PLATELET VOLUME 8.2 fl (9.6-12.3); MONO % 8.9 % (3.0-9.0); NEUT # 8.4 10*3/uL (2.3-7.9); NEUT % 75.6 % (47.0-73.0); PLATELET COUNT AUTOMATED 336 10*3/uL (130-400); RED BLOOD COUNT 4.08 10*6/uL (4.10-5.10); RED CELL DISTRI WIDTH 14.1 % (0-14.5); WHITE BLOOD COUNT 11.1 10*3/uL (4.8-10.8)
[2019-11-14 09:43] LABS: ACT PARTIAL THROMBO TIME 28.4 SECONDS (20.0-32.1); INTERNATIONAL NORM RATIO 1.1 (2.0-3.5)
[2019-11-14 09:52] LABS: ALBUMIN 3.2 gm/dl (3.1-4.5); CREATININE 1.2 mg/dL (0.55-1.02); POTASSIUM 3.5 mmol/L (3.5-5.1); TOTAL PROTEIN 7.3 gm/dL (6.4-8.2); TROPONIN I 0.015 ng/ml (<0.045)
[2019-11-14 10:46] VITALS: BP 134/67
[2019-11-14 14:15] VITALS: BP 108/60
[2019-11-14] MEDS ORDERED: FUROSEMIDE40 MG PO (14:49)
[2019-11-14] MEDS ORDERED: CENTRUM SILVER1 EAC1 PO (14:50)
[2019-11-14] MEDS ORDERED: PHILLIPS' COLO1 EACH PO (14:51)
[2019-11-14 16:00] VITALS: BP 108/60
[2019-11-14 20:00] VITALS: BP 126/95
[2019-11-15] VITALS: BP 95/70
[2019-11-15 06:28] LABS: BASO % 0.3 % (0.0-1.0); EOS # 0.3 10*3/uL (0.0-0.4); EOS % 2.8 % (1.0-4.0); HEMATOCRIT 36.4 % (37.0-47.0); LYMPH # 1.3 10*3/uL (1.3-4.4); LYMPH % 13.1 % (27.0-41.0); MEAN CELL VOLUME 89.9 fl (81.0-99.0); MEAN CORPUSCULAR HGB 28.4 pg (27.0-31.0); MEAN CORPUSCULAR HGB CONC 31.6 g/dl (33.0-37.0); MEAN PLATELET VOLUME 8.3 fl (9.6-12.3); MONO # 0.9 10*3/uL (0.1-1.0); MONO % 9.2 % (3.0-9.0); NEUT # 7.5 10*3/uL (2.3-7.9); PLATELET COUNT AUTOMATED 323 10*3/uL (130-400); RED BLOOD COUNT 4.05 10*6/uL (4.10-5.10); RED CELL DISTRI WIDTH 14.4 % (0-14.5); WHITE BLOOD COUNT 10.1 10*3/uL (4.8-10.8)
[2019-11-15 06:44] LABS: ALBUMIN 2.8 gm/dl (3.1-4.5); CHLORIDE 97 mmol/L (98-107); POTASSIUM 3.1 mmol/L (3.5-5.1); SGOT/AST 21 IU/L (3-35); SGPT/ALT 25 U/L (12-78); SODIUM 134 mmol/L (136-145)
[2019-11-15 06:55] LABS: ALKALINE PHOSPHATASE 81 U/L (45-117); BUN 23 mg/dl (7-24); CREATININE 0.91 mg/dL (0.55-1.02); TOTAL PROTEIN 6.4 gm/dL (6.4-8.2)
[2019-11-15 07:17] LABS: VITAMIN D, 25-HYDROXY 108.9 ng/mL (30-100)
[2019-11-15 08:00] VITALS: BP 114/66
[2019-11-15 12:00] VITALS: BP 119/75
[2019-11-15 16:00] VITALS: BP 131/71
[2019-11-15 20:00] VITALS: BP 106/58
[2019-11-16] VITALS: BP 118/72
[2019-11-16 06:36] LABS: BASO % 0.4 % (0.0-1.0); EOS % 4.1 % (1.0-4.0); HEMATOCRIT 37.2 % (37.0-47.0); LYMPH # 1.7 10*3/uL (1.3-4.4); LYMPH % 18.6 % (27.0-41.0); MEAN CELL VOLUME 90.5 fl (81.0-99.0); MEAN CORPUSCULAR HGB 28.7 pg (27.0-31.0); MEAN CORPUSCULAR HGB CONC 31.7 g/dl (33.0-37.0); MEAN PLATELET VOLUME 8.7 fl (9.6-12.3); MONO % 10.1 % (3.0-9.0); NEUT # 6.1 10*3/uL (2.3-7.9); NEUT % 66.3 % (47.0-73.0); PLATELET COUNT AUTOMATED 329 10*3/uL (130-400); RED BLOOD COUNT 4.11 10*6/uL (4.10-5.10); RED CELL DISTRI WIDTH 14.5 % (0-14.5); WHITE BLOOD COUNT 9.1 10*3/uL (4.8-10.8)
[2019-11-16 06:37] LABS: EOS # 0.4 10*3/uL (0.0-0.4); MONO # 0.9 10*3/uL (0.1-1.0)
[2019-11-16 06:54] LABS: ALBUMIN 2.7 gm/dl (3.1-4.5); BUN 24 mg/dl (7-24); CHLORIDE 98 mmol/L (98-107); CREATININE 0.87 mg/dL (0.55-1.02); POTASSIUM 3.8 mmol/L (3.5-5.1); SGOT/AST 23 IU/L (3-35); SGPT/ALT 24 U/L (12-78); SODIUM 135 mmol/L (136-145)
[2019-11-16 06:56] LABS: ALKALINE PHOSPHATASE 87 U/L (45-117); TOTAL PROTEIN 6.8 gm/dL (6.4-8.2)
[2019-11-16 08:00] VITALS: BP 113/68
[2019-11-16] MEDS ORDERED: XARE20MG PO (11:40)
[2019-11-16 12:00] VITALS: BP 116/69
== END 2019-11-16 16:55 | disposition home or self-care (01) ==
LOC: ED 08:35 → EDHOLD 11:10 → 4E 13:56
PROVIDERS: Emergency Medicine; Hospitalist; ADMIT Internal Medicine
DX: I11.0 Hypertensive heart disease with heart failure (principal); I50.33 Acute on chronic diastolic (congestive) heart failure; J90 Pleural effusion, not elsewhere classified; I25.10 Atherosclerotic heart disease of native coronary artery without angina pectoris; D72.829 Elevated white blood cell count, unspecified; E87.1 Hypo-osmolality and hyponatremia; E87.8 Other disorders of electrolyte and fluid balance, not elsewhere classified; N17.9 Acute kidney failure, unspecified; E83.41 Hypermagnesemia; F41.9 Anxiety disorder, unspecified; K21.9 Gastro-esophageal reflux disease without esophagitis; I35.0 Nonrheumatic aortic (valve) stenosis; I27.20 Pulmonary hypertension, unspecified; I48.19 Other persistent atrial fibrillation; J96.21 Acute and chronic respiratory failure with hypoxia; Z95.5 Presence of coronary angioplasty implant and graft

== ENCOUNTER 2019-11-20 14:28 | Observation (INO) | payer MEDICARE ==
[~2019-11-20] VITALS: Ht 157 cm; Wt 48.6 kg
[2019-11-20 14:28] VITALS: BP 118/52
[~2019-11-20 14:28] MED LIST changes: +FUROSEMIDE40 MG PO
[2019-11-20 14:53] LABS: BASO % 0.4 % (0.0-1.0); EOS # 0.3 10*3/uL (0.0-0.4); EOS % 3.7 % (1.0-4.0); HEMATOCRIT 36.8 % (37.0-47.0); LYMPH # 1.5 10*3/uL (1.3-4.4); LYMPH % 16.6 % (27.0-41.0); MEAN CELL VOLUME 89.8 fl (81.0-99.0); MEAN CORPUSCULAR HGB 28.3 pg (27.0-31.0); MEAN CORPUSCULAR HGB CONC 31.5 g/dl (33.0-37.0); MEAN PLATELET VOLUME 8.4 fl (9.6-12.3); MONO # 0.9 10*3/uL (0.1-1.0); MONO % 9.8 % (3.0-9.0); NEUT # 6.4 10*3/uL (2.3-7.9); NEUT % 69.2 % (47.0-73.0); PLATELET COUNT AUTOMATED 376 10*3/uL (130-400); RED CELL DISTRI WIDTH 14.3 % (0-14.5); WHITE BLOOD COUNT 9.2 10*3/uL (4.8-10.8)
[2019-11-20 15:04] LABS: ACT PARTIAL THROMBO TIME 36.7 SECONDS (20.0-32.1); INTERNATIONAL NORM RATIO 1.6 (2.0-3.5)
[2019-11-20 15:11] LABS: ALBUMIN 2.9 gm/dl (3.1-4.5); CREATININE 1.12 mg/dL (0.55-1.02); POTASSIUM 3.3 mmol/L (3.5-5.1); TOTAL PROTEIN 6.9 gm/dL (6.4-8.2); TROPONIN I 0.034 ng/ml (<0.045)
[2019-11-20 15:21] VITALS: BP 123/55
[2019-11-20 16:00] VITALS: BP 111/46
[2019-11-20 17:23] VITALS: BP 127/51
[2019-11-20 20:00] VITALS: BP 110/80
[2019-11-21 06:13] LABS: BASO % 0.4 % (0.0-1.0); EOS # 0.5 10*3/uL (0.0-0.4); EOS % 4.6 % (1.0-4.0); HEMATOCRIT 37.5 % (37.0-47.0); LYMPH # 1.6 10*3/uL (1.3-4.4); LYMPH % 16.1 % (27.0-41.0); MEAN CELL VOLUME 88.4 fl (81.0-99.0); MEAN CORPUSCULAR HGB 28.1 pg (27.0-31.0); MEAN CORPUSCULAR HGB CONC 31.7 g/dl (33.0-37.0); MEAN PLATELET VOLUME 8.5 fl (9.6-12.3); MONO % 9.9 % (3.0-9.0); NEUT # 6.6 10*3/uL (2.3-7.9); NEUT % 68.5 % (47.0-73.0); PLATELET COUNT AUTOMATED 383 10*3/uL (130-400); RED BLOOD COUNT 4.24 10*6/uL (4.10-5.10); RED CELL DISTRI WIDTH 14.5 % (0-14.5); WHITE BLOOD COUNT 9.7 10*3/uL (4.8-10.8)
[2019-11-21 06:38] LABS: BUN 26 mg/dl (7-24); CHLORIDE 101 mmol/L (98-107); CREATININE 0.94 mg/dL (0.55-1.02); POTASSIUM 3.8 mmol/L (3.5-5.1); SODIUM 136 mmol/L (136-145)
[2019-11-21 08:00] VITALS: BP 113/82
[2019-11-21 16:00] VITALS: BP 113/61
[2019-11-21 20:00] VITALS: BP 107/65
[2019-11-22] VITALS: BP 108/72
[2019-11-22 07:17] LABS: ACT PARTIAL THROMBO TIME 29.5 SECONDS (20.0-32.1); INTERNATIONAL NORM RATIO 1.2 (2.0-3.5)
[2019-11-22 07:44] LABS: BASO # 0.1 10*3/uL (0.0-0.1); BASO % 0.5 % (0.0-1.0); EOS # 0.5 10*3/uL (0.0-0.4); EOS % 4.8 % (1.0-4.0); HEMATOCRIT 40.9 % (37.0-47.0); LYMPH # 1.6 10*3/uL (1.3-4.4); LYMPH % 15.6 % (27.0-41.0); MEAN CELL VOLUME 88.9 fl (81.0-99.0); MEAN CORPUSCULAR HGB 27.8 pg (27.0-31.0); MEAN CORPUSCULAR HGB CONC 31.3 g/dl (33.0-37.0); MEAN PLATELET VOLUME 8.8 fl (9.6-12.3); MONO % 9.9 % (3.0-9.0); NEUT # 6.9 10*3/uL (2.3-7.9); NEUT % 68.7 % (47.0-73.0); PLATELET COUNT AUTOMATED 453 10*3/uL (130-400); RED CELL DISTRI WIDTH 14.3 % (0-14.5)
[2019-11-22 08:00] VITALS: BP 96/70
[2019-11-22 08:07] LABS: ALBUMIN 3.3 gm/dl (3.1-4.5); ALKALINE PHOSPHATASE 99 U/L (45-117); BUN 25 mg/dl (7-24); CHLORIDE 95 mmol/L (98-107); CREATININE 0.99 mg/dL (0.55-1.02); POTASSIUM 3.5 mmol/L (3.5-5.1); SGOT/AST 29 IU/L (3-35); SGPT/ALT 34 U/L (12-78); SODIUM 134 mmol/L (136-145); TOTAL PROTEIN 6.9 gm/dL (6.4-8.2)
[2019-11-22 12:13] LABS: BODY FLUID WBC 265 /uL
[2019-11-22 12:50] LABS: BF LYMPHOCYTES 23 %; BF MACROPHAGES 58 %; BF MESOTHELIALS 8 %; BF NEUTROPHILS 11 %
[2019-11-22 16:00] VITALS: BP 115/54
[2019-11-22 20:00] VITALS: BP 120/61
[2019-11-23] VITALS: BP 109/71
[2019-11-23 06:27] LABS: BASO # 0.1 10*3/uL (0.0-0.1); BASO % 0.6 % (0.0-1.0); EOS # 0.4 10*3/uL (0.0-0.4); EOS % 3.9 % (1.0-4.0); HEMATOCRIT 40.8 % (37.0-47.0); LYMPH # 1.6 10*3/uL (1.3-4.4); LYMPH % 15.1 % (27.0-41.0); MEAN CELL VOLUME 87.7 fl (81.0-99.0); MEAN CORPUSCULAR HGB 27.5 pg (27.0-31.0); MEAN CORPUSCULAR HGB CONC 31.4 g/dl (33.0-37.0); MEAN PLATELET VOLUME 8.6 fl (9.6-12.3); MONO # 1.1 10*3/uL (0.1-1.0); MONO % 10.3 % (3.0-9.0); NEUT # 7.5 10*3/uL (2.3-7.9); NEUT % 69.6 % (47.0-73.0); PLATELET COUNT AUTOMATED 466 10*3/uL (130-400); RED BLOOD COUNT 4.65 10*6/uL (4.10-5.10); RED CELL DISTRI WIDTH 14.1 % (0-14.5); WHITE BLOOD COUNT 10.8 10*3/uL (4.8-10.8)
[2019-11-23 06:40] LABS: ALBUMIN 3.1 gm/dl (3.1-4.5); ALKALINE PHOSPHATASE 90 U/L (45-117); BUN 29 mg/dl (7-24); CHLORIDE 95 mmol/L (98-107); CREATININE 1.05 mg/dL (0.55-1.02); POTASSIUM 3.2 mmol/L (3.5-5.1); SGOT/AST 30 IU/L (3-35); SGPT/ALT 33 U/L (12-78); SODIUM 131 mmol/L (136-145); TOTAL PROTEIN 7.3 gm/dL (6.4-8.2)
[2019-11-23 08:00] VITALS: BP 118/82
[2019-11-23] MEDS ORDERED: LASIX20 MG PO (10:57)
[2019-11-23] MEDS ORDERED: VITAMIN D350 MC3 PO (10:58)
== END 2019-11-23 14:11 | disposition home or self-care (01) ==
LOC: ED 14:28 → EDHOLD 16:41 → 5E 17:07
PROVIDERS: Emergency Medicine; Internal Medicine; Internal Medicine Critical Care Medicine; ADMIT Internal Medicine
DX: I11.0 Hypertensive heart disease with heart failure (principal); I50.9 Heart failure, unspecified; J96.01 Acute respiratory failure with hypoxia; N17.0 Acute kidney failure with tubular necrosis; D64.9 Anemia, unspecified; E87.1 Hypo-osmolality and hyponatremia; E87.6 Hypokalemia; E83.41 Hypermagnesemia; E44.0 Moderate protein-calorie malnutrition; J90 Pleural effusion, not elsewhere classified; K21.9 Gastro-esophageal reflux disease without esophagitis; I48.20 Chronic atrial fibrillation, unspecified; F41.9 Anxiety disorder, unspecified; I25.10 Atherosclerotic heart disease of native coronary artery without angina pectoris; R73.9 Hyperglycemia, unspecified